=== PATIENT | male | born 1995 | race Caucasian/White ===

== ENCOUNTER 2020-06-14 08:51 | Outpatient (CLI) | payer OTHER ==
[2020-06-14 10:34] LABS: BASOPHILS % (AUTO) 0.7 % (0.0-2.0); EOSINOPHILS # (AUTO) 0.1 K/uL (0-0.4); HEMATOCRIT 47.5 % (36-52); HEMOGLOBIN 16.1 g/dL (12.0-18.0); MEAN CORPUSCULAR HEMOGLOBIN 29 pg (27-31); MEAN CORPUSCULAR HGB CONC 34 g/dL (33-37); MEAN CORPUSCULAR VOLUME 86.8 fL (80-94); MONOCYTES # (AUTO) 0.4 K/uL (0.8-1.0); MONOCYTES % (AUTO) 5.7 % (1.7-9.3); NEUTROPHILS # (AUTO) 3.7 K/uL (1.8-7.7); NEUTROPHILS % (AUTO) 59.6 % (42.2-75.2); PLATELET COUNT (AUTO) 207 K/uL (140-450); RED BLOOD CELL COUNT(AUTO) 5.48 MIL/uL (4.20-6.10); RED CELL DISTRIBUTION WIDTH 12.8 % (11.6-13.7); WHITE BLOOD COUNT (AUTO) 6.2 K/uL (4.8-10.8)
[2020-06-14 10:36] LABS: APPEARANCE,URINE CLEAR (CLEAR); BILIRUBIN,URINE NEGATIVE (NEGATIVE); BLOOD, URINE NEGATIVE (NEGATIVE); COLOR,URINE YELLOW (YELLOW); LEUKOCYTE ESTERASE ,URINE NEGATIVE (NEGATIVE); NITRITE, URINE NEGATIVE (NEGATIVE); UGLUCOSE NEGATIVE (NEGATIVE)
[2020-06-14 10:53] LABS: ANION GAP 11.3 (8-16); CARBON DIOXIDE 30.8 mmol/L (21-32); CHOL/HDL RATIO 2.8 (1-4.5); POTASSIUM 4.1 mmol/L (3.5-5.1); THYROID STIMULATING HORMONE 0.58 uIU/mL (0.34-3.74); TOTAL BILIRUBIN 0.6 mg/dL (0.0-1.0)
[2020-06-15 09:09] LABS: HEPATITIS B SURFACE ANTIBODY Reactive (.)
[2020-06-15 10:08] LABS: T4 FREE (DIRECT) 1.17 ng/dL (0.82-1.77)
[2020-06-15 12:07] LABS: VARICELLA IGG ANTIBODY >4000 index (Immune >165)
== END 2020-06-14 21:31 | disposition home or self-care (01) ==
LOC: MLB 08:51
DX: H57.89 Other specified disorders of eye and adnexa (principal); Z02.0 Encounter for examination for admission to educational institution
CPT/HCPCS: 36415; 80053; 81003; 82306; 83036; 84439; 84443; 85025; 86706; 86787